=== PATIENT | female | born 1975 | race American Indian/Alaskan Native ===

== ENCOUNTER 2017-04-23 08:47 | Outpatient (CLI) | payer BC ==
--- NOTE | 2017-04-23 10:43 | Ultrasound Report ---
BILATERAL DIGITAL DIAGNOSTIC MAMMOGRAM with CAD and BILATERAL BREAST ULTRASOUND: 04/23/17 09:00:00 CLINICAL: Palpable lump in the upper inner left breast. COMPARISON:None. FINDINGS: The breasts are heterogeneously dense, which may obscured small masses.A circumscribed right inner asymmetry persists with spot compression. No mammographic finding at a left upper inner palpable marker. Ultrasound of the right breast demonstrated a benign cyst at 2 o'clock 6 cm from the nipple measuring 5 x 2 x 3 mm. It correlates with the mammographic density. Ultrasound of the left breast in the area of the palpable marker at 11 o'clock 12 cm from the nipple demonstrated normal fibroglandular structures and fat. No mass, cyst or shadowing. IMPRESSION: Negative left mammogram and negative left breast ultrasound. Tiny benign cysts of the right breast at 11 o'clock. BI-RADS CATEGORY: 2 -- Benign RECOMMENDATION: Clinical follow-up of the palpable area in the left breast and routine mammographic screening based on ACS guidelines. ACR BI-RADS MAMMOGRAPHIC CODES: 0 = Needs additional imaging evaluation; 1 = Negative; 2 = Benign; 3 = Probably benign; 4 = Suspicious; 5 = Malignant; 6 = Known biopsy-proven malignancy COMMENT: 1. Dense breast tissue, i.e., adenosis, fibrocystic changes, etc., may obscure an underlying neoplasm. 2. Approximately 10% of cancers are not detected with mammography. 3. A negative mammography report should not delay biopsy if a clinically suspicious mass is present. COMMENT: Patient follow-up letters are generated by our [email or web address] application.
== END 2017-04-23 08:48 | disposition home or self-care (01) ==
LOC: MAMMO 08:47
PROVIDERS: ATTEND Obstetrics & Gynecology
DX: N63 Unspecified lump in breast (principal); N60.01 Solitary cyst of right breast
CPT/HCPCS: 76642; G0204; 77066